=== PATIENT | male | born 1970 | race Hispanic/Latino ===

== ENCOUNTER 2017-11-07 00:51 | Emergency (ER) | payer SELFPAY ==
[2017-11-07 04:01] VITALS: BP 137/79
--- NOTE | 2017-11-07 04:50 | XRay Report ---
FINAL REPORT PROCEDURE: XR SHOULDER 2+V LT TECHNIQUE: LEFT shoulder radiographs including AP views in internal and external rotation and abduction. CPT 71299 HISTORY: r/o dislocation COMPARISON: No prior studies are available for comparison. FINDINGS: Fracture (s) and/or Dislocation(s): None . Joint space(s): Normal . Soft tissues: Normal . Bone mineralization: Normal . Foreign bodies: None . IMPRESSION: Normal Examination
== END 2017-11-07 06:41 | disposition left against medical advice (07) ==
LOC: ED 00:51
DX: M25.512 Pain in left shoulder (principal); Z53.21 Procedure and treatment not carried out due to patient leaving prior to being seen by health care provider